=== PATIENT | female | born 1970 | race Caucasian/White ===

== ENCOUNTER 2018-03-25 20:13 | Emergency (ER) | payer MEDICAID ==
[~2018-03-25] VITALS: Ht 172.7 cm; Wt 91.0 kg
[2018-03-25 21:35] LABS: CLARITY,URINE CLOUDY (Clear); COLOR,URINE YELLOW (Yellow); GLUCOSE, URINE NEGATIVE (Neg); KETONES,URINE TRACE mg/dl (Neg); LEUKOCYTE ESTERASE ,URINE NEGATIVE (Neg); NITRITES, URINE NEGATIVE (Neg); OCCULT BLOOD,URINE NEGATIVE (Neg); PROTEIN,URINE NEGATIVE (Neg); UA COLLECTION TYPE CLN CATCH MIDSTREAM; UROBILINOGEN,URINE 0.2 E.U/dL (0.2-1.0)
[2018-03-25] MEDS ORDERED: orphenadrine citrate 60mg/2ml inj. IM ONE (21:50)
[2018-03-25] MEDS ORDERED: ondansetron/PF 4mg/2ml inj IV ONE (21:50)
[2018-03-25] MEDS ORDERED: LIDOcaine 5% patch TP ONE (21:50)
[2018-03-25] MEDS ORDERED: acetaminophen 325mg tablet PO ONE (21:50)
[2018-03-25 21:53] LABS: BACTERIA,URINE 2+ /HPF (Neg); CAL OXALATE CRYSTALS 2+ /HPF (NEGATIVE); MUCUS STRANDS MANY /LPF (Neg); RBC,URINE NONE SEEN /HPF (0-2); SQUAMOUS EPITHELIAL CELL,UR MANY /LPF (FEW); WBC,URINE 0-4 /HPF (0-4)
[2018-03-25] MEDS: morphine 4 MG/ML inj SYRINge IV PRN ×2 (22:04→23:00)
[2018-03-25 22:36] LABS: ALANINE AMINOTRANSFERASE 23 U/L (12-78); ALBUMIN 3.4 G/DL (3.4-5.0); ALKALINE PHOSPHATASE 96 IU/L (46-116); ANION GAP 10 (8-16); ASPARTATE AMINO TRANSFERASE 17 U/L (10-37); BILIRUBIN,TOTAL 0.2 MG/DL (0.1-1.0); BLOOD UREA NITROGEN 15 MG/DL (7-18); BUN/CREATININE RATIO 19.7 (6.6-38.0); CALCIUM 8.7 MG/DL (8.5-10.1); CHLORIDE 103 MMOL/L (99-107); CREATININE 0.76 MG/DL (0.40-0.90); GLUCOSE 93 MG/DL (70-104); POTASSIUM 3.8 MMOL/L (3.5-5.1); SODIUM 141 MMOL/L (135-145); TOTAL CARBON DIOXIDE 27.8 MMOL/L (24-32); TOTAL PROTEIN 6.7 G/DL (6.4-8.2); eGFR 82 ML/MIN
[2018-03-25 22:45] LABS: BASOPHILS # (AUTO) 0.1 X10'3 (0-0.2); BASOPHILS % (AUTO) 0.8 % (0-1); EOSINOPHILS # (AUTO) 0.1 X10'3 (0-0.9); HEMATOCRIT 38.3 % (35.0-45.0); HEMOGLOBIN 12.6 g/dl (12.0-16.0); LYMPHOCYTES # (AUTO) 2.5 X10'3 (1.1-4.8); LYMPHOCYTES % (AUTO) 23.1 % (21-51); MEAN CORPUSCULAR HGB CONC 32.9 % (33.0-36.5); MEAN CORPUSCULAR VOLUME 82.1 FL (78-98); MEAN PLATELET VOLUME 9.8 FL (7.4-10.4); MONOCYTES # (AUTO) 0.8 X10'3 (0-0.9); MONOCYTES % (AUTO) 7.4 % (2-12); NEUTROPHILS # (AUTO) 7.3 X10'3 (1.8-7.7); NEUTROPHILS % (AUTO) 67.7 % (42-75); PLATELET COUNT 321 X10'3 (140-440); RED BLOOD COUNT 4.67 X10'6 (4.20-5.60); RED CELL DISTRIBUTION WIDTH 16.8 % (11.5-14.5); WHITE BLOOD COUNT 10.8 X10'3 (4.5-11.0)
[2018-03-25 22:58] LABS: URINE AMPHETAMINE SCREEN NEGATIVE (Neg); URINE BARBITUATE SCREEN NEGATIVE (Neg); URINE BENZODIAZEPINES SCREEN NEGATIVE (Neg); URINE CANNABINOID SCREEN POSITIVE (Neg); URINE COCAINE SCREEN NEGATIVE (Neg); URINE METHADONE SCREEN NEGATIVE (Neg); URINE OPIATE SCREEN NEGATIVE (Neg); URINE PHENCYCLIDINE SCREEN NEGATIVE (Neg)
[2018-03-25] MEDS ORDERED: LIDO700A32 TOP (23:02)
[2018-03-25] MEDS ORDERED: HYDR-3965 PO (23:02)
[2018-03-25 23:10] VITALS: BP 132/92
== END 2018-03-25 23:12 | disposition home or self-care (01) ==
LOC: ER 20:14
DX: M54.5 Low back pain (principal); Z87.442 Personal history of urinary calculi; Z88.6 Allergy status to analgesic agent; Z88.8 Allergy status to other drugs, medicaments and biological substances; Z79.899 Other long term (current) drug therapy
CPT/HCPCS: 36415; 74176; 80053; 80305; 81001; 85025; 96372; 96374; 96375; 96376; 99284; J2270; J2360; J2405

== ENCOUNTER 2018-11-28 19:55 | Emergency (ER) | payer MEDICAID ==
[~2018-11-28] VITALS: Ht 172.7 cm; Wt 85.4 kg
[~2018-11-28 19:55] MED LIST: CYCL-1 PO; LIDO700A32 TOP
[2018-11-28 20:20] VITALS: BP 121/91
--- NOTE | 2018-11-28 20:47 | NUR ---
PT'S MOTHER IN LAW VENANCIO: [phone]
[2018-11-28] MEDS ORDERED: traMADol 50MG tablet PO ONE (21:25)
[2018-11-28] MEDS ORDERED: TRAM50TA2 PO (21:27)
--- NOTE | 2018-11-28 21:45 | NUR ---
PATIENT DEMONSTRATED USE OF CRUTCHES WELL. PATIENT'S LEFT KNEE WAS DEMETRIA WRAPPED BY Sigasi MARIBEL, BOWLING ALLEY REFINISHER TO LEFT FOOT WNL. PATIENT CRYING SHE USED HER CRUTCHES. PATIENT IS AXOX4. PATIENT REFUSED OFFER OF A CAB RIDE TO [facility]. THE PATIENT DOES NOT WANT TO GO HOME TO HER BECAUSE SHE "FELL AND HE TOLD ME TO PISS ON MYSELF AND HE WOULD NOT HELP ME UP". PATIENT DENIED PHYSICAL ABUSE. I OFFERED TO HAVE A LAY UPS ASSEMBLER OF ONE [address]AF[address] COME AND TALK TO HER IF SHE IS IN AN UNSAFE SITUATION. THE PATIENT REFUSED AND STATED "I JUST WANT TO BE ALONE, GO OUSIDE, AND HAVE A CIGARETTE." HER MOTHER IN LAW BROUGHT HER HERE AND PATIENT REFUSED TO HAVE HER MOTHER IN LAW PICK HER UP. COFFIN MAKERMATHEW CUMMINS NOTIFIED THAT PATIENT REFUSING ALL OFFERS OF HELP.
--- NOTE | 2018-11-28 21:46 | NUR ---
SPOKE WITH PT'S [id number], PT REFUSED TO ALLOW HER TO COME AND GET HER FOR A RIDE HOME. PT STATES SHE HAS NO WHERE TO GO, ADAMANTLY REFUSED OFFER BY NURSE FOR A TAXI RIDE TO [facility]
== END 2018-11-28 21:55 | disposition home or self-care (01) ==
LOC: ER 19:56
DX: M25.562 Pain in left knee (principal); G43.909 Migraine, unspecified, not intractable, without status migrainosus; F10.99 Alcohol use, unspecified with unspecified alcohol-induced disorder; Z87.442 Personal history of urinary calculi; Z98.890 Other specified postprocedural states; Z60.2 Problems related to living alone; Z88.0 Allergy status to penicillin; Z88.2 Allergy status to sulfonamides; Z88.8 Allergy status to other drugs, medicaments and biological substances; Z79.899 Other long term (current) drug therapy; Y90.9 Presence of alcohol in blood, level not specified
CPT/HCPCS: 73564; 99284

== ENCOUNTER 2018-12-22 11:45 | Outpatient (CLI) | payer MEDICAID | END 2018-12-22 13:45 | disposition home or self-care (01) | LOC: ORTHO 11:45 | PROVIDERS: ATTEND Orthopaedic Surgery | DX: M25.462 Effusion, left knee (principal); F17.200 Nicotine dependence, unspecified, uncomplicated | CPT/HCPCS: G0463 ==

== ENCOUNTER 2019-02-16 09:44 | Outpatient (CLI) | payer MEDICAID | END 2019-02-16 23:59 | disposition home or self-care (01) | LOC: RAD 09:44 | PROVIDERS: ATTEND Orthopaedic Surgery | DX: S83.242A Other tear of medial meniscus, current injury, left knee, initial encounter (principal); M17.12 Unilateral primary osteoarthritis, left knee; M25.462 Effusion, left knee; F17.200 Nicotine dependence, unspecified, uncomplicated; X58.XXXA Exposure to other specified factors, initial encounter; Y93.89 Activity, other specified; Y92.89 Other specified places as the place of occurrence of the external cause; Y99.8 Other external cause status | CPT/HCPCS: 73721 ==

== ENCOUNTER 2019-03-21 15:29 | Outpatient (CLI) | payer MEDICAID | END 2019-03-21 16:45 | disposition home or self-care (01) | LOC: ORTHO 15:29 | PROVIDERS: ATTEND Orthopaedic Surgery | DX: S83.242D Other tear of medial meniscus, current injury, left knee, subsequent encounter (principal); M17.12 Unilateral primary osteoarthritis, left knee; M25.562 Pain in left knee; X58.XXXD Exposure to other specified factors, subsequent encounter | CPT/HCPCS: G0463 ==

== ENCOUNTER 2019-07-23 23:00 | Emergency (ER) | payer MEDICAID ==
[~2019-07-23] VITALS: Ht 172.7 cm; Wt 90.3 kg
[2019-07-24] MEDS ORDERED: ondansetron/PF 4mg/2ml inj IV ONE
[2019-07-24] MEDS ORDERED: ONDA4TAB6 PO (00:49)
[2019-07-24] MEDS ORDERED: FLO0.4C PO (00:49)
[2019-07-24] MEDS ORDERED: HYDR-4353 PO (00:49)
[2019-07-24 01:15] LABS: BASOPHILS # (AUTO) 0.1 X10'3 (0-0.2); BASOPHILS % (AUTO) 1.5 % (0-1); EOSINOPHILS % (AUTO) 0.2 % (0-6); HEMATOCRIT 45.3 % (35.0-45.0); HEMOGLOBIN 14.9 g/dl (12.0-16.0); LYMPHOCYTES # (AUTO) 2.1 X10'3 (1.1-4.8); MEAN CORPUSCULAR HEMOGLOBIN 30.8 PG (27.0-31.0); MEAN CORPUSCULAR HGB CONC 32.9 g/dL (33.0-36.5); MEAN CORPUSCULAR VOLUME 93.4 FL (78-98); MEAN PLATELET VOLUME 9.3 FL (7.4-10.4); MONOCYTES # (AUTO) 0.5 X10'3 (0-0.9); MONOCYTES % (AUTO) 6.2 % (2-12); NEUTROPHILS # (AUTO) 5.9 X10'3 (1.8-7.7); NEUTROPHILS % (AUTO) 68.1 % (42-75); PLATELET COUNT 247 X10'3 (140-440); RED BLOOD COUNT 4.85 X10'6 (4.20-5.60); RED CELL DISTRIBUTION WIDTH 14.8 % (11.5-14.5); WHITE BLOOD COUNT 8.6 X10'3 (4.5-11.0)
[2019-07-24 01:21] LABS: COLOR,URINE YELLOW (Yellow); GLUCOSE, URINE NEGATIVE (Neg); KETONES,URINE NEGATIVE (Neg); LEUKOCYTE ESTERASE ,URINE NEGATIVE (Neg); NITRITES, URINE NEGATIVE (Neg); OCCULT BLOOD,URINE LARGE (Neg); PROTEIN,URINE NEGATIVE (Neg); URINE HCG NEGATIVE (NEG); UROBILINOGEN,URINE 0.2 E.U/dL (0.2-1.0)
[2019-07-24 01:27] LABS: ALANINE AMINOTRANSFERASE 28 U/L (12-78); ALBUMIN 3.7 G/DL (3.4-5.0); ALBUMIN/GLOBULIN RATIO 1.1 (1.1-1.5); ALKALINE PHOSPHATASE 116 IU/L (46-116); ANION GAP 11 (8-16); ASPARTATE AMINO TRANSFERASE 20 U/L (10-37); BILIRUBIN,TOTAL 0.3 MG/DL (0.1-1.0); BLOOD UREA NITROGEN 18 MG/DL (7-18); BUN/CREATININE RATIO 18.9 (6.6-38.0); CALCIUM 9.5 MG/DL (8.5-10.1); CHLORIDE 103 MMOL/L (99-107); CREATININE 0.95 MG/DL (0.40-0.90); GLUCOSE 92 MG/DL (70-104); LIPASE 438 U/L (73-393); POTASSIUM 4.3 MMOL/L (3.5-5.1); SODIUM 141 MMOL/L (135-145); TOTAL CARBON DIOXIDE 27.3 MMOL/L (24-32); TOTAL PROTEIN 7.2 G/DL (6.4-8.2); eGFR 63 ML/MIN
[2019-07-24 01:29] LABS: BACTERIA,URINE FEW /HPF (Neg); CLARITY,URINE SLIGHTLY CLOUDY (Clear); SQUAMOUS EPITHELIAL CELL,UR FEW /LPF (FEW); UA COLLECTION TYPE CLN CATCH MIDSTREAM; WBC,URINE NONE SEEN /HPF (0-4)
[2019-07-24] MEDS ORDERED: morphine 4 MG/ML inj SYRINge IV ONE ×2 (02:10)
[2019-07-24] MEDS ORDERED: HYDROmorphone 1 mg/ml syringe IM ONE (02:40)
[2019-07-24 03:05] VITALS: BP 145/79
== END 2019-07-24 03:07 | disposition home or self-care (01) ==
LOC: ER 23:01
DX: N20.9 Urinary calculus, unspecified (principal); R11.0 Nausea; R10.9 Unspecified abdominal pain; Z87.442 Personal history of urinary calculi; Z90.89 Acquired absence of other organs; Z98.890 Other specified postprocedural states; Z72.89 Other problems related to lifestyle; Z60.2 Problems related to living alone; Z88.0 Allergy status to penicillin; Z88.2 Allergy status to sulfonamides; Z88.8 Allergy status to other drugs, medicaments and biological substances; Z79.899 Other long term (current) drug therapy
CPT/HCPCS: 36415; 74176; 80053; 81001; 81025; 83690; 85025; 96372; 96374; 96375; 96376; 99284; J1170; J2270; J2405

== ENCOUNTER 2023-11-04 06:05 | Outpatient (CLI) | payer MEDICAID ==
[~2023-11-04 06:05] MED LIST changes: +ONDA4TAB6 PO
[2023-11-04] MEDS ORDERED: GADOTERATE MEGLUMINE 7.5 MMOL/15 ML VIAL IV ONE (06:36)
[2023-11-04] MEDS ORDERED: LIDOcaine 1%/PF 5ML 10 MG/ML VIAL ONE (06:36)
[2023-11-04] MEDS ORDERED: LIDOcaine 1% 30ml preserv. free vial ONE (06:36)
[2023-11-04] MEDS ORDERED: iohexol 300 MG/1 ML 50ml polymer ONE (06:36)
== END 2023-11-04 23:59 | disposition home or self-care (01) ==
LOC: RAD 06:05
PROVIDERS: ATTEND Family Medicine
DX: M25.561 Pain in right knee (principal); M25.562 Pain in left knee; Z96.659 Presence of unspecified artificial knee joint
CPT/HCPCS: A9575; J3490; Q9967